=== PATIENT | male | born 1945 | race Caucasian/White ===

== ENCOUNTER 2024-09-10 08:19 | Observation (INO) ==
--- NOTE | 2024-09-10 08:50 | Emergency Department Note ---
Impression & Plan Facial cellulitis, Dental abscess ED Provider Note CHIEF COMPLAINT: Right-sided jaw pain and facial swelling x 1 day HISTORY OF PRESENT ILLNESS: Patient is an 79-year-old male with past medical history significant for hypertension, myasthenia gravis, allergies, among other chronic medical problems who presents to the emergency department for evaluation of right-sided facial swelling. Patient reports he developed right upper jaw pain and facial swelling yesterday afternoon. He has a dental implant on the right upper jawline that broke several months ago. He feels like he sometimes will get food particles stuck in the area. He notes pain along the jawline near the broken implant, and facial swelling that started yesterday. Pain was throbbing in nature and did keep him from sleeping last night, but is now better, and he rates it a 2/10. He did not take any medications, nor applied any compresses or perform any interventions for his symptoms. He denies fever, chills, nausea, vomiting or malaise. No blood or pus or foul tasting fluid in his mouth. He denies any recent antibiotics. He is from [place] and is in town for [place] for the weekend. REVIEW OF SYSTEMS: Review of systems as per HPI. All other systems reviewed were negative. 10 systems reviewed.. PMH: External medical records are reviewed and summarized as above/below. See Problem List. SOCIAL HISTORY: Patient lives at home in [facility]. Retired. PHYSICAL EXAM: Vital Signs: Reviewed Nurse's notes. CONSTITUTIONAL: Patient is a well-appearing 79-year-old male who is awake and alert and in no acute distress. Vital signs are stable. EARS: Tympanic membranes intact, not inflamed, have normal contour. External canals clear. MOUTH: Overall the patient has fair dentition. There is a fractured right upper dental implant that in the region of the first molar. There is mild swelling of the gumline, but no focal abscess. The area is tender to percussion. Mucous membranes moist, no lesions, tongue and gums appear normal. THROAT: No pharyngeal injection, exudates, or tonsillar hypertrophy. Airway is patent. No trismus noted. FACE: Swelling of the right upper face/cheek, without increased warmth or cellulitic changes. NECK: No lymphadenopathy. HEART: Regular rate and rhythm. LUNGS: Clear to auscultation. ED COURSE: The patient was seen and assessed as above. External medical records are reviewed. Patient presents to the emergency department for evaluation of facial swelling and right upper jaw pain. Symptoms do appear to be related to the broken dental implant. Fortunately no evidence for drainable abscess, or Harish's angina. IV lock was initiated. Laboratory studies were collected including CBC and BMP. He was given Unasyn [address] scan of the abdomen and pelvis with IV contrast was ordered. Diagnostics, as interpreted by me: Laboratory studies: Moderately elevated white count at 13,200 with left shift. H&H 13.3 and 38.7. No electrolyte imbalance or LIZETH. Imaging studies: Maxillofacial CT scan with IV contrast are concerning for dental caries and apical abscesses involving the right first maxillary premolar and adjacent second premolar. There is a small 1 x 0.5 cm abscess over the right maxilla and is extensive right facial inflammation consistent with cellulitis. Case reviewed with attending physician, Dr. Clark, who agrees with ED workup. All laboratory and diagnostic imaging studies reviewed with the patient. I did discuss treatment options with the patient. Options included escalation of care to admission/observation for IV antibiotics, versus a trial of oral antibiotics as an outpatient. Given rapid development of the facial cellulitis, as well as his immunocompromise state, I did recommend inpatient care. [place], does not have any doctors or providers locally, and is at high risk for complication. I did consult with Dr. Oneal with [facility], unfortunately, he was tied up in the operating room and was not able to weigh in on consult at this time. I did discuss admission/observation with Dr. Pope with the [facility] hospitalist service and he will admit the patient. Chronic conditions affecting care: Hypertension, myasthenia gravis, immunocompromise state Differential diagnosis:, Facial cellulitis, dental abscess, facial abscess, Harish's angina, sepsis, among others. Past Med/Surg History Problem List (Updated 09/10/24 @ 12:06 by Keith Pope MD) Dental abscess Facial cellulitis Medical History Myasthenia gravis BPH (benign prostatic hyperplasia) Environmental and seasonal allergies Hypertension Social History Smoking Status: Never smoker Second Hand Exposure: No; Do You Dip or Chew Tobacco: No; Tobacco Cessation Education Requested by Patient: No Hx Alcohol Use: No Hx Substance Use: No Preferred Language: Pashto Communication Ability: Effective Event Decorator Required: No Beliefs That Will Affect Care: None Current Living Situation: Alone Other Information That Helps Us Care for You: No Feels Safe at Home: Yes Safety Concerns: Feels Safe At This Time Assistive Devices: Glasses Allergies Allergies Allergy/AdvReac Type Severity Reaction Status Date / Time No Known Allergies Allergy Verified 09/10/24 11:15 Home Meds Home Medications Medication Instructions Recorded Confirmed amlodipine 10 mg-benazepril 40 mg 1 cap PO DAILY 09/10/24 09/10/24 capsule calcium 500 mg (as 1 tab PO BIDWMEAL 09/10/24 09/10/24 carbonate)-vitamin D3 5 mcg (200 unit) tablet (Oyster Shell Calcium-Vitamin D3) metoprolol succinate 100 mg 100 mg PO HS 09/10/24 09/10/24 tablet,extended release 24 hr mycophenolate mofetil 500 mg tablet 1,000 mg PO BID 09/10/24 09/10/24 prednisone 20 mg tablet 20 mg PO DAILY 09/10/24 09/10/24 pyridostigmine bromide 60 mg tablet 60 mg PO TID 09/10/24 09/10/24 simvastatin 20 mg tablet 20 mg PO HS 09/10/24 09/10/24 tamsulosin 0.4 mg capsule 0.4 mg PO HS 09/10/24 09/10/24 Results & Data (ED) Vital Signs Vital Signs - 24 hr 09/10/24 08:25 09/10/24 10:21 Temperature 36.7 C Temperature Source Temporal Artery Scan Pulse Rate 66 Pulse Rate [Finger] 54 L Respiratory Rate 20 18 Respiratory Effort / Characteristics Non-Labored Spontaneous Respiratory Depth Normal Blood Pressure 146/80 H Blood Pressure [Right Arm] 118/63 Blood Pressure Mean 102 Blood Pressure Mean [Right Arm] 81 Blood Pressure Position [Right Arm] Sitting Pulse Oximetry 96 96 Oxygen Delivery Method Room Air Room Air Sepsis Recent Fever Within 48 Hours No Sepsis New/Unexplained Change in Mental Status N/A Sepsis Action Taken by Nursing No Action Required Home Medications Current Medication List: was personally reviewed by me Laboratory Data Attestation: I reviewed the patient's lab results. 09/10/24 09:00 09/10/24 09:00 Lab Results 09/10/24 Range/Units 09:00 WBC 13.24 H (4.8-10.8) K/ul RBC 4.59 L (4.70-6.10) M/uL Hgb 13.3 L (14.0-18.0) g/dl Hct 38.7 L (42.0-52.0) % MCV 84.3 (80.0-100.0) fL MCH 29.0 (25.0-34.0) pg MCHC 34.4 (32.0-36.0) g/dL RDW Std Deviation 43.7 (36.4-46.3) fL RDW Coeff of Chel 14.2 (11.5-14.5) % Plt Count 219 (130-400) K/uL MPV 11.1 (9.4-12.4) fL Immature Gran % (Auto) 0.4 % Neut % (Auto) 84.5 % Lymph % (Auto) 6.0 % [place] % (Auto) 8.6 % Eos % (Auto) 0.4 % Baso % (Auto) 0.1 % Neut # (Auto) 11.19 H (1.40-6.50) K/uL Lymph # (Auto) 0.80 L (1.20-3.40) K/uL [place] # (Auto) 1.14 H (0.11-0.59) K/uL Eos # (Auto) 0.05 (0.00-0.50) K/uL Baso # (Auto) 0.01 (0.00-0.20) K/uL Immature Gran # (Auto) 0.05 (0.01-0.20) K/uL Sodium 135 L (136-145) mmol/L Potassium 4.0 (3.5-5.1) mmol/L Chloride 105 (98-107) mmol/L Carbon Dioxide 25 (21-32) mmol/L Anion Gap 5 (3-11) BUN 13 (6-23) mg/dl Creatinine 0.77 (0.6-1.4) mg/dl Est Cr Clr Drug Dosing 101.1 ml/min eGFR 90.50 BUN/Creatinine Ratio 16.9 (10-20) Glucose 115 H (70-99(Fasting)) mg/dl Calcium 8.8 (8.6-10.3) mg/dl Administered Medications Pyridostigmine Cable (Pyridostigmine Cable 60 Mg Tab) 60 mg PO TID JESÚS Stop: 10/10/24 13:59 Last Admin: 09/10/24 14:36 Dose: Not Given Documented By: HRB Discontinued Medications Ampicillin Sodium/Sulbactam Sodium (Unasyn) 3,000 mg in 100 mls @ 200 mls/hr IV NOW STA Stop: 09/10/24 09:15 Last Infusion: 09/10/24 09:35 Dose: Infused Documented By: Admin: 09/10/24 09:05 Dose: 200 mls/hr Documented By: CEF Ioversol (Optiray 320 100ml) 94 ml IV ONCE ONE Stop: 09/10/24 10:03 Last Admin: 09/10/24 10:03 Dose: 94 ml Documented By: ABS Imaging Data Attestation: I personally reviewed and interpreted this imaging study as follows: Radiologist's Impression: Face CT 09/10/24 08:[address] WITH CONTRAST CLINICAL HISTORY: RIGHT FACIAL PAIN AND SWELLING COMPARISON STUDY: No previous studies for comparison. TECHNIQUE: Thin cut axial images through the facial bones were obtained following intravenous injection of 94 cc of Optiray 320 IV. Sagittal and coronal reformats were viewed. A dose lowering technique was utilized adhering to the principles of ALARA. FINDINGS: Visualized portions of the intracranial contents are unremarkable on unenhanced exam. There is moderate polypoid mucosal thickening of the inferior maxillary sinuses as well as the right sphenoid sinus. There is mild ethmoid sinus mucosal thickening. Evaluation is compromised by streak artifact from multiple dental amalgams. There are dental caries and periapical abscesses involving the right first maxillary premolar and likely the second premolar as well. Extensive overlying inflammation is present. There is a small rim enhancing 1.3 x 0.4 cm fluid collection overlying the right maxilla consistent with an abscess. There is no soft tissue gas. Parotid and submandibular glands are normal. Epiglottis is normal. IMPRESSION: Dental caries and periapical abscesses involving the right first maxillary premolar and likely the adjacent second premolar. Associated small 1.3 x 0.4 cm abscess overlying the right maxilla and extensive associated right facial inflammation consistent with cellulitis. ACT 112: Negative or not required by law. Electronically signed by: Iban Castle M.D. 09/10/2024 10:37 AM Discharge Plan Visit Data Chief Complaint: Facial Injury/Pain Stated Complaint: RIGHT CHEEK SWELLING,PAIN ED Provider: Baldomero Clark ED Midlevel Provider: Aristides Armas Discharge Problem: Facial cellulitis, Dental abscess Patient Disposition: Admitted As Inpatient Condition: Fair Discharge Instructions Interventions: ED Discharge Assessment Last Done: 09/10/24 14:06
[2024-09-10] MEDS: AMPICILLIN/SULBACTAM SOD 3,000 MG/100 ML BAG IV STA (09:05)
[2024-09-10 09:13] LABS: Hematocrit (blood only) 38.7 % (42.0-52.0); Hemoglobin 13.3 g/dl (14.0-18.0); Immature Granulocytes # (auto) 0.05 K/uL (0.01-0.20); Immature Granulocytes % (auto) 0.4 %; Mean Corpuscular Hemoglobin 29.0 pg (25.0-34.0); Mean Corpuscular Volume 84.3 fL (80.0-100.0); Platelet Count 219 K/uL (130-400); RDW Standard Deviation 43.7 fL (36.4-46.3); Red Blood Count 4.59 M/uL (4.70-6.10); White Blood Count 13.24 K/ul (4.8-10.8)
[2024-09-10 09:32] LABS: Anion Gap 5.0 (3-11); Blood Urea Nitrogen 13.0 mg/dl (6-23); Calcium 8.8 mg/dl (8.6-10.3); Carbon Dioxide 25.0 mmol/L (21-32); Chloride 105.0 mmol/L (98-107); Creatinine Clr Calc Pharmacy 101.1 ml/min; Glucose 115.0 mg/dl (70-99(Fasting)); Potassium 4.0 mmol/L (3.5-5.1); Sodium 135.0 mmol/L (136-145)
--- NOTE | 2024-09-10 09:48 | Emergency Department Note ---
ED Visit Note I was consulted in regards to the patient's presentation and plan of care by the Advanced Practice Provider. I engaged in a detailed/meaningful discussion with the Advanced Practice Provider in regards to this patient's workup and plan of care. I performed a substantiative portion of the medical decision making following discussion with the Advanced Practice Provider. Please see the Advanced Practice Provider's separate documentation for full details of the patient's visit. I agree with the assessment and plan of Nyasia Armas PA-C. Baldomero Clark, DO Emergency Medicine .
[2024-09-10] MEDS: OPTIRAY 320 100ml IV ONE (10:03)
--- NOTE | 2024-09-10 10:38 | CT Scan Report ---
FACIAL BONE CT WITH CONTRAST CLINICAL HISTORY: RIGHT FACIAL PAIN AND SWELLING COMPARISON STUDY: No previous studies for comparison. TECHNIQUE: Thin cut axial images through the facial bones were obtained following intravenous injecti on of 94 cc of Optiray 320 IV. Sagittal and coronal reformats were viewed. A dose lowering technique was utilized adhering to the principles of ALARA. FINDINGS: Visualized portions of the intracranial contents are unremarkable on unenhanced exam. There is moderate polypoid mucosal thickening of the inferior maxillary sinuses as well as the right sphen oid sinus. There is mild ethmoid sinus mucosal thickening. Evaluation is compromised by streak artifa ct from multiple dental amalgams. There are dental caries and periapical abscesses involving the righ t first maxillary premolar and likely the second premolar as well. Extensive overlying inflammation i s present. There is a small rim enhancing 1.3 x 0.4 cm fluid collection overlying the right maxilla c onsistent with an abscess. There is no soft tissue gas. Parotid and submandibular glands are normal. Epiglottis is normal. IMPRESSION: Dental caries and periapical abscesses involving the right first maxillary premolar and likely the adjacent second premolar. Associated small 1.3 x 0.4 cm abscess overlying the right maxill a and extensive associated right facial inflammation consistent with cellulitis. ACT 112: Negative or not required by law. Electronically signed by: Iban Castle M.D. 09/10/2024 10:37 AM
--- NOTE | 2024-09-10 11:37 | History & Physical Report ---
Date of Service September 10, 2024 Assessment & Plan (1) Myasthenia gravis: (2) Facial cellulitis: (3) Dental abscess: (4) Hypertension: Plan 79 year old male with myasthenia gravis presents to the ER with right sided facial swelling and pain #Facial cellulitis / dental abscess / immunosuppressed state Given immunosuppression with mycophenolate and chronic prednisone use and proximity to eye recommend observation with intravenous antibiotics (Unasyn) Consult oromaxillofacial surgery, NPO after midnight in case of need for surgery If requiring surgery will need stress dose steroids perioperatively #Myasthenia gravis Given current infection will temporarily hold his mycophenolate Continue prednisone and pyridostigmine #Hypertension Continue amlodipine-benazepril and metoprolol succinate #Hyperlipidemia Continue simvastatin #BPH Continue tamsulosin VTE Prophylaxis - low risk, SCDs Disposition - observation to med/surg Admission and Anticipated Discharge Date Admission Date: September 10, 2024 History of Present Illness Chief Complaint: Right facial swelling Primary Care Provider: NO PCP Cristobal Nesbitt is an 79 year old male presents to the ER with right sided facial swelling and upper tooth pain that started yesterday afternoon. No fever or chills. Never had this previously. He has mysthenia gravis which is well cont rolled on his current regimen of prednisone, mycophenolate and pyridostigmine. No prior stroke or heart attacks. Allergies Allergy/AdvReac Type Severity Reaction Status Date / Time No Known Allergies Allergy Verified 09/10/24 11:15 Home Medications Medication Instructions Recorded Confirmed Type amlodipine 10 mg-benazepril 40 mg 1 cap PO DAILY 09/10/24 09/10/24 History capsule calcium 500 mg (as 1 tab PO BIDWMEAL 09/10/24 09/10/24 History carbonate)-vitamin D3 5 mcg (200 unit) tablet (Oyster Shell Calcium-Vitamin D3) metoprolol succinate 100 mg 100 mg PO HS 09/10/24 09/10/24 History tablet,extended release 24 hr mycophenolate mofetil 500 mg tablet 1,000 mg PO BID 09/10/24 09/10/24 History prednisone 20 mg tablet 20 mg PO DAILY 09/10/24 09/10/24 History pyridostigmine bromide 60 mg tablet 60 mg PO TID 09/10/24 09/10/24 History simvastatin 20 mg tablet 20 mg PO HS 09/10/24 09/10/24 History tamsulosin 0.4 mg capsule 0.4 mg PO HS 09/10/24 09/10/24 History Past Med/Surg History Problem List (Updated 09/10/24 @ 21:12 by Juan Oneal DMD) Acute dentin caries Dental abscess Facial cellulitis Medical History Myasthenia gravis BPH (benign prostatic hyperplasia) Environmental and seasonal allergies Hypertension Social History Smoking Status: Never smoker Second Hand Exposure: No; Do You Dip or Chew Tobacco: No; Tobacco Cessation Education Requested by Patient: No Hx Alcohol Use: No Hx Substance Use: No Preferred Language: Persian Communication Ability: Effective Animal Nursery Worker Required: No Beliefs That Will Affect Care: None Current Living Situation: Alone Other Information That Helps Us Care for You: No Feels Safe at Home: Yes Safety Concerns: Feels Safe At This Time Assistive Devices: Glasses Review of Systems Review of Systems: All systems reviewed & are unremarkable except as noted in HPI & below Physical Exam Constitutional: WD/WN, vitals as above Respiratory: normal respiratory effort, lungs clear to auscultation Cardiovascular: RRR, no murmur, no edema Gastrointestinal (Abdomen): normal bowel sounds, soft, nontender, no hepatosplenomegaly Skin: right sided facial swelling extending from lower eyelid to mandible centered over maxilla, tender to palpation without fluctuance Neurologic: moves all extremities and awake; not confused Results & Data Results & Data Vital Signs (Past 12 Hours) Vital Signs Temp Pulse Pulse Resp BP BP Pulse Ox 09/10/24 10:21 54 L 18 118/63 96 09/10/24 08:25 36.7 C 66 20 146/80 H 96 O2 Del Method 09/10/24 10:21 Room Air 09/10/24 08:25 Room Air Laboratory Results Abnormal lab results 09/10/24 Range/Units 09:00 WBC 13.24 H (4.8-10.8) K/ul RBC 4.59 L (4.70-6.10) M/uL Hgb 13.3 L (14.0-18.0) g/dl Hct 38.7 L (42.0-52.0) % Neut # (Auto) 11.19 H (1.40-6.50) K/uL Lymph # (Auto) 0.80 L (1.20-3.40) K/uL [place] # (Auto) 1.14 H (0.11-0.59) K/uL Sodium 135 L (136-145) mmol/L Glucose 115 H (70-99(Fasting)) mg/dl Diagnostic Findings FACIAL BONE CT WITH CONTRAST CLINICAL HISTORY: RIGHT FACIAL PAIN AND SWELLING COMPARISON STUDY: No previous studies for comparison. TECHNIQUE: Thin cut axial images through the facial bones were obtained following intravenous injection of 94 cc of Optiray 320 IV. Sagittal and coronal reformats were viewed. A dose lowering technique was utilized adhering to the principles of ALARA. FINDINGS: Visualized portions of the intracranial contents are unremarkable on unenhanced exam. There is moderate polypoid mucosal thickening of the inferior maxillary sinuses as well as the right sphenoid sinus. There is mild ethmoid sinus mucosal thickening. Evaluation is compromised by streak artifact from multiple dental amalgams. There are dental caries and periapical abscesses involving the right first maxillary premolar and likely the second premolar as well. Extensive overlying inflammation is present. There is a small rim enhancing 1.3 x 0.4 cm fluid collection overlying the right maxilla consistent with an abscess. There is no soft tissue gas. Parotid and submandibular glands are normal. Epiglottis is normal. IMPRESSION: Dental caries and periapical abscesses involving the right first maxillary premolar and likely the adjacent second premolar. Associated small 1.3 x 0.4 cm abscess overlying the right maxilla and extensive associated right facial inflammation consistent with cellulitis. Medications Administered ER Medications Given: Unasyn 3000mg IV Code Status & VTE Plan Code Status Full VTE Prophylaxis Plan VTE Prophylaxis will be ordered: No PG Care Time/CCT Total # of Minutes Spent Total Time Spent with Patient: Total time spent is greater than 50% in coordination of care (as documented) at patient's floor/unit and/or counseling patient: Coding Level of Care Code 24577 INT INP/OBS CARE 3/75MIN Diagnoses Myasthenia gravis G70.00 Facial cellulitis L03.211 Dental abscess K04.7 Hypertension I10
[2024-09-10] MEDS ORDERED: ACETAMINOPHEN 325 MG TAB PO PRN (11:49)
[2024-09-10] MEDS ORDERED: KETOROLAC TROMETHAMINE 15 MG/ML VIAL IV PRN (11:49)
[2024-09-10] MEDS ORDERED: ONDANSETRON INJ 2 MG/ML 2 ML VIAL IV PRN (11:49)
[2024-09-10] MEDS: AMPICILLIN/SULBACTAM SOD 3,000 MG/100 ML BAG IV SCH (16:23)
[2024-09-10] MEDS: SIMVASTATIN 20 MG TAB PO SCH (20:26)
[2024-09-10] MEDS: TAMSULOSIN HCL 0.4 MG CAP PO SCH (20:26)
[2024-09-10] MEDS: METOPROLOL SUCC 50MG EXT REL TAB PO SCH (20:29)
[2024-09-10] MEDS ORDERED: MYCOPHENOLATE MOFETIL 250 MG CAP PO SCH (21:00)
--- NOTE | 2024-09-10 21:11 | Oral/Maxillofacial Consult ---
Date of Consultation September 10, 2024 Assessment & Plan (1) Dental abscess: (2) Facial cellulitis: (3) Acute dentin caries: History of Present Illness Attending Physician: Keith Pope MD History of Present Illness D721- x 2 tooth # 4 and 5 K12.1 CPT 59600 The patient presents with oral infection upper right cheek, infraorbital and mucobuccal fold The areas involved are very swollen, fluctuant and associated with abscess # 4 and 5 The adjacent gingival tissue is involved with gingival recession and associated muco-gingival issues. There are other carious teeth and fractured implants upper left Teeth stained and erosion as expected. The following will require an intraoral I&D--upper right mucobuccal fold and infraorbital space abscess Suggested treatment Acute facial abscess upper right from abscessed # 4 and 5. These teeth are grossly fractured and carious. Will need I&D and extraction of # 4 and 5 NPO tonight For OR tomorrow afternoon Surgery will be done at the [facility] Main OR under [place] All risks reviewed, questioned answered. Risks discussed: Bleeding,Pain,swelling,infection, dry socket, delayed healing, nerve injury to face,lips,tongue,chin area which could be permanent (rare). TMJ, jaw stiffness, change in bite (rare), ear pain (referred). Sinus problems like fistula or infection. Need to leave a small root fragment in place to avoid injury to sinus. Relationship of teeth to sinus Need to see dentist once back in [facility] We will set up surgery Saturday, NPO Consents will be signed and H&P completed before the procedure. Allergies Allergy/AdvReac Type Severity Reaction Status Date / Time No Known Allergies Allergy Verified 09/10/24 11:15 Home Medications Medication Instructions Recorded Confirmed Type amlodipine 10 mg-benazepril 40 mg 1 cap PO DAILY 09/10/24 09/10/24 History capsule calcium 500 mg (as 1 tab PO BIDWMEAL 09/10/24 09/10/24 History carbonate)-vitamin D3 5 mcg (200 unit) tablet (Oyster Shell Calcium-Vitamin D3) metoprolol succinate 100 mg 100 mg PO HS 09/10/24 09/10/24 History tablet,extended release 24 hr mycophenolate mofetil 500 mg tablet 1,000 mg PO BID 09/10/24 09/10/24 History prednisone 20 mg tablet 20 mg PO DAILY 09/10/24 09/10/24 History pyridostigmine bromide 60 mg tablet 60 mg PO TID 09/10/24 09/10/24 History simvastatin 20 mg tablet 20 mg PO HS 09/10/24 09/10/24 History tamsulosin 0.4 mg capsule 0.4 mg PO HS 09/10/24 09/10/24 History Patient History Medical History Myasthenia gravis BPH (benign prostatic hyperplasia) Environmental and seasonal allergies Hypertension Social History Smoking Status: Never smoker Second Hand Exposure: No; Do You Dip or Chew Tobacco: No; Tobacco Cessation Education Requested by Patient: No Hx Alcohol Use: No Hx Substance Use: No Preferred Language: Sami Communication Ability: Effective Roof Truss Machine Tender Required: No Beliefs That Will Affect Care: None Current Living Situation: Alone Other Information That Helps Us Care for You: No Feels Safe at Home: Yes Safety Concerns: Feels Safe At This Time Assistive Devices: Glasses Results & Data Vital Signs (Past 12 Hours) Vital Signs Temp Pulse Pulse Resp BP Pulse Ox O2 Del Method 09/10/24 14:20 36.9 C 62 20 164/76 H 98 Room Air 09/10/24 12:11 57 L 19 137/50 L 09/10/24 12:03 49 L 09/10/24 11:51 50 L 16 137/50 L 97 Room Air 09/10/24 10:21 54 L 18 118/63 96 Room Air PG Care Time/CCT Total # of Minutes Spent Total Time Spent with Patient: Total time spent is greater than 50% in coordination of care (as documented) at patient's floor/unit and/or counseling patient: Coding Level of Care Code 18560 INT INP/OBS CARE 140MIN Diagnoses Dental abscess K04.7 Facial cellulitis L03.211 Acute dentin caries K02.9
[2024-09-10] MEDS: CHLORHEXIDINE GLUCONATE 0.12% 480 ML MT SCH (22:04)
[2024-09-11] MEDS: SODIUM CHLORIDE 0.9% 1,000 ML IV SCH (07:59)
[2024-09-11] MEDS: ENALAPRIL MALEATE 10 MG TAB PO SCH (08:02)
[2024-09-11 08:06] LABS: Hematocrit (blood only) 35.9 % (42.0-52.0); Hemoglobin 12.2 g/dl (14.0-18.0); Immature Granulocytes # (auto) 0.06 K/uL (0.01-0.20); Immature Granulocytes % (auto) 0.5 %; Mean Corpuscular Hemoglobin 28.8 pg (25.0-34.0); Mean Corpuscular Volume 84.7 fL (80.0-100.0); Platelet Count 192 K/uL (130-400); RDW Standard Deviation 44.2 fL (36.4-46.3); Red Blood Count 4.24 M/uL (4.70-6.10); White Blood Count 11.38 K/ul (4.8-10.8)
[2024-09-11 08:25] LABS: Anion Gap 6.0 (3-11); Blood Urea Nitrogen 11.0 mg/dl (6-23); Calcium 8.3 mg/dl (8.6-10.3); Carbon Dioxide 24.0 mmol/L (21-32); Chloride 106.0 mmol/L (98-107); Creatinine Clr Calc Pharmacy 105.2 ml/min; Glucose 98.0 mg/dl (70-99(Fasting)); Potassium 3.8 mmol/L (3.5-5.1); Sodium 136.0 mmol/L (136-145)
[2024-09-11] MEDS: HYDROCORTISONE SOD 50 MG in SYRINGE 0 ML IV SCH (08:32)
--- NOTE | 2024-09-11 08:46 | Electrocardiogram Report ---
Test Reason : Blood Pressure : */* mmHG Vent. Rate : 53 BPM Atrial Rate : 53 BPM P-R Int : 228 ms QRS Dur : 106 ms QT Int : 454 ms P-R-T Axes : 44 -4 40 degrees QTcB Int : 426 ms Sinus bradycardia with 1st degree A-V block Otherwise normal ECG No previous ECGs available Confirmed by Corey Bai ([id number]) on 09/11/2024 8:45:57 AM Referred By: REFERRED SELF Confirmed By: Corey Bai
[2024-09-11] MEDS ORDERED: predniSONE 20 MG TAB PO SCH (09:00)
--- NOTE | 2024-09-11 11:54 | Hospitalist Progress Note ---
Date of Service September 11, 2024 Assessment & Plan (1) Myasthenia gravis: (2) Facial cellulitis: (3) Dental abscess: (4) Hypertension: Plan 79 year old male with myasthenia gravis presents to the ER with right sided facial swelling and pain #Facial cellulitis / dental abscess / immunosuppressed state Given immunosuppression with mycophenolate and chronic prednisone use and proximity to eye recommend observation with intravenous antibiotics (Unasyn) Consulted oromaxillofacial surgery, was made NPO after MN For OR today with Dr. Oneal today for I&D Will stress dose him following procedure d/t chronic steroid use #Myasthenia gravis Given current infection will temporarily hold his mycophenolate Continue prednisone and pyridostigmine #Hypertension Continue amlodipine-benazepril and metoprolol succinate #Hyperlipidemia Continue simvastatin #BPH Continue tamsulosin VTE Prophylaxis - low risk, SCDs Disposition - observation to med/surg AM labs ordered Admission and Anticipated Discharge Date Admission Date: September 10, 2024 Supervising Physician Co-Signing Physician Notes The patient was not seen by me. The chart was reviewed. Case discussed with AYSHA Gan. Agree with assessment and plan Subjective Cristobal is a pleasant 79 yo M who was seen on rounds this morning. He was admitted with dental abscess and is for I&D with Dr. Oneal today. He reports symptoms including pain and swelling have improved. Denies cp or dyspnea. Review of Systems 2 Review of Systems: All systems reviewed and are unremarkable except as noted in HPI and below. Denies fever, chills, fatigue, headache, nasal congestion, sore throat, cough, chest pain, shortness of breath, palpitations, orthopnea, PND, abdominal pain, n/v/d, constipation, dysuria, hematuria, frequency, back pain, joint pain or swelling, easy bruising or bleeding, skin lesions or rashes. Physical Exam 2 Physical Exam: GENERAL: 79 yo elderly WM. A&Ox3. No distress. ENT: Right sided facial swelling. Dental cares noted. Mucus membranes moist. LUNGS: Clear to auscultation bilaterally. No accessory muscle use. No W/R/R. CARDIOVASCULAR: Regular rate and rhythm. No M/G/R. No JVD. Results & Data Results & Data Vital Signs (Past 12 Hours) Vital Signs Temp Pulse Resp BP Pulse Ox O2 Del Method 09/11/24 07:32 36.6 C 49 L 18 159/66 H 93 Room Air Laboratory Results 09/11/24 07:22 09/11/24 07:22 PG Care Time/CCT Total # of Minutes Spent Total Time Spent with Patient: Total time spent is greater than 50% in coordination of care (as documented) at patient's floor/unit and/or counseling patient: 36 minutes Coding Level of Care Code 15281 SUB INP/OBS CARE 2/35MIN Diagnoses Myasthenia gravis G70.00 Facial cellulitis L03.211 Dental abscess K04.7 Hypertension I10
[2024-09-11] MEDS ORDERED: LIDOCAINE 2% 2 ML VIAL/AMP(20MG/ML) INFIL ONE (13:13)
[2024-09-11] MEDS ORDERED: ONDANSETRON INJ 2 MG/ML 2 ML VIAL ONE (13:13)
[2024-09-11] MEDS ORDERED: DEXAMETHASONE SOD INJ 4 MG/ML VIAL ONE (13:13)
[2024-09-11] MEDS ORDERED: PROPOFOL IV EMULSION 10 MG/ML 20 ML VIAL IV ONE ×2 (13:13→14:15)
[2024-09-11] MEDS ORDERED: ONDANSETRON INJ 2 MG/ML 2 ML VIAL IV PRN (13:15)
[2024-09-11] MEDS ORDERED: NALOXONE HCL 0.4 MG/1 ML VIAL/CARP IV PRN (13:15)
[2024-09-11] MEDS ORDERED: PROMETHAZINE HCL 6.25 MG in SODIUM CHLORIDE 0.9% 50 ML IV PRN (13:15)
[2024-09-11] MEDS ORDERED: ATROPINE SULFATE 0.1 MG/ML 10ML SYR IV PRN (13:15)
[2024-09-11] MEDS ORDERED: FLUMAZENIL 0.1 MG/1 ML 10 ML VIAL IV PRN (13:15)
--- NOTE | 2024-09-11 13:15 | Anesthesiology Consultation ---
Date of Service September 11, 2024 Assessment & Plan Chart Review Chart Review: Acceptable Risk for Surgery and Patient NOT seen in Pre Admission Testing Consults Requested none ASA ASA3 Proposed Anesthesia Anesthesia Type: General Risk / Benefits Reviewed With: PT / POA / Parent / Guardian, Accepts Plan and Informed Consent Obtained History Surgery Operation Date: 09/11/24 07:00 Proposed Procedures p Incision and Drainage Right Abscess Teeth #4 and #5 - Juan Oneal, JAYSON Height/Weight Height: 6 ft 2 in Weight: 110.3 kg Allergies Allergy/AdvReac Type Severity Reaction Status Date / Time No Known Allergies Allergy Verified 09/10/24 11:15 Medications Home Medications Medication Instructions Recorded Confirmed Last Taken amlodipine 10 mg-benazepril 40 mg 1 cap PO DAILY 09/10/24 09/10/24 Unknown capsule calcium 500 mg (as 1 tab PO BIDWMEAL 09/10/24 09/10/24 Unknown carbonate)-vitamin D3 5 mcg (200 unit) tablet (Oyster Shell Calcium-Vitamin D3) metoprolol succinate 100 mg 100 mg PO HS 09/10/24 09/10/24 Unknown tablet,extended release 24 hr mycophenolate mofetil 500 mg tablet 1,000 mg PO BID 09/10/24 09/10/24 Unknown prednisone 20 mg tablet 20 mg PO DAILY 09/10/24 09/10/24 Unknown pyridostigmine bromide 60 mg tablet 60 mg PO TID 09/10/24 09/10/24 Unknown simvastatin 20 mg tablet 20 mg PO HS 09/10/24 09/10/24 Unknown tamsulosin 0.4 mg capsule 0.4 mg PO HS 09/10/24 09/10/24 Unknown Active Medications Generic Name Dose Route Start Last Admin Trade Name Yari PRN Reason Stop Dose Admin Amlodipine Besylate 10 mg 09/11/24 09:00 09/11/24 08:01 Amlodipine Besylate 5 Mg Tab PO 10/11/24 08:59 10 mg DAILY JESÚS Administration Enalapril Maleate 20 mg 09/11/24 09:00 09/11/24 08:02 Enalapril Maleate 10 Mg Tab PO 10/11/24 08:59 20 mg DAILY JESÚS Administration Ampicillin Sodium/Sulbactam Sodium 3,000 mg in 100 mls @ 200 mls/hr 09/10/24 15:00 09/11/24 08:32 Unasyn IV 09/20/24 14:59 Infused Q6H JESÚS Infusion Hydrocortisone Sodium 1 mls @ 4 mls/min 09/11/24 08:00 09/11/24 08:32 Succinate 50 mg/ Syringe IV 10/11/24 07:59 4 mls/min Q8H JESÚS Administration Sodium Chloride 1,000 mls @ 80 mls/hr 09/11/24 07:45 09/11/24 07:59 Nss IV 09/14/24 07:44 80 mls/hr .[id number] JESÚS Administration Metoprolol Succinate 100 mg 09/10/24 21:00 09/10/24 20:29 Metoprolol Succ 50mg Ext Rel Tab PO 10/10/24 20:59 100 mg HS JESÚS Administration Pyridostigmine [place] 60 mg 09/10/24 14:00 09/11/24 08:02 Pyridostigmine [place] 60 Mg Tab PO 10/10/24 13:59 60 mg TID JESÚS Administration Simvastatin 20 mg 09/10/24 21:00 09/10/24 20:26 Simvastatin 20 Mg Tab PO 10/10/24 20:59 20 mg HS JESÚS Administration Tamsulosin HCl 0.4 mg 09/10/24 21:00 09/10/24 20:26 Tamsulosin Hcl 0.4 Mg Cap PO 10/10/24 20:59 0.4 mg HS JESÚS Administration NPO Date Last Intake of Fluids: 09/10/24 Time Last Intake of Fluids: 20:00 Date Last Intake of Solids: 09/10/24 Time Last Intake of Solids: 17:00 Past Medical History Medical History Myasthenia gravis BPH (benign prostatic hyperplasia) Environmental and seasonal allergies Hypertension Exercise / Class Metabolic Activity III < 4 Walking/Shop/Light housework Past Anesthesia History No Hx of Anesthesia Complications and No Family Hx of Anesthesia Complications History of PONV No Hx of PONV and No Hx of Motion Sickness Social History Smoking Status: Never smoker Do You Dip or Chew Tobacco: No Hx Alcohol Use: No Hx Substance Use: No substance use type: does not use Physical Exam Vital Signs Last Vital Signs Temp 36.8 C 09/11/24 12:55 Pulse 60 09/11/24 12:55 Resp 18 09/11/24 12:55 BP 156/76 H 09/11/24 12:55 Pulse Ox 98 09/11/24 12:55 O2 Del Method Room Air 09/11/24 12:55 Constitutional + obese; no acute distress ENMT Mouth: + dentition abnormality and + poor dentition Thyromental Distance: > or= 3.5 Finger Breadths Mallampati Class: II Neck normal visual inspection and trachea midline; neck extension not limited Respiratory normal respiratory effort Auscultation: lungs clear to auscultation bilaterally and + diminished lung sounds Cardiovascular Rate/Rhythm: regular rate and regular rhythm Heart Sounds: no murmur Vessels: no carotid bruit Musculoskeletal Spine: normal cervical ROM Extremities: extremities normal to inspection Neurologic moves all extremities Motor/Sensory: no sensory deficit Psychiatric Orientation: alert and oriented x 3 Testing Laboratory Results 09/11/24 07:22 09/11/24 07:22 09/11/24 11:36 POC Glucose 104 H Electrocardiogram Date: 09/11/24 Findings: + SB @ (@ 53 1st degree AVB)
--- NOTE | 2024-09-11 13:18 | History & Physical Bridge Note ---
Date of Service September 11, 2024 History & Physical Bridge Note I have examined the patient, reviewed the History & Physical and in the interval since the performance of the History & Physical I have noted the following changes of clinical significance: no changes noted. OK for surgery
[2024-09-11] MEDS ORDERED: ROCURONIUM BROMIDE 10 MG/ML 5 ML VIAL IV ONE (13:20)
[2024-09-11] MEDS ORDERED: ACETAMINOPHEN 1000 MG/100 ML IV IV ONE (13:39)
[2024-09-11] MEDS ORDERED: HYDROmorphone INJ 2 MG/ML SYR/VIAL ONE (13:58)
[2024-09-11] MEDS: BUPIVACAINE/EPINEPHRINE 0.5% 1:200,000 1.8 ML CARP ONE (14:00)
[2024-09-11] MEDS: SURGICEL ABSORB HEMOSTAT 2IN X 14IN TOP ONE (14:04)
[2024-09-11] MEDS ORDERED: GLYCOPYRROLATE 0.2 MG/ML VIAL ONE (14:09)
[2024-09-11] MEDS ORDERED: SUGAMMADEX SODIUM 200 MG/2 ML VIAL IV ONE (14:20)
--- NOTE | 2024-09-11 14:37 | Post Operative Brief Note ---
PG Immediate Post Op with CF Date of Surgery September 11, 2024 Pre & Post Diagnosis Operation Date: 09/11/24 07:00 Pre-Op Diagnosis: 1. Dental abscess, 2. Facial cellulitis, 3. Acute dentin caries Post-Op Diagnosis: 1. Dental abscess, 2. Facial cellulitis, 3. Acute dentin caries I identified the patient and participated in the time-out.: Yes Procedure Operation Date: 09/11/24 07:00 Actual Procedures p Incision and Drainage Abscess Teeth #4 and #5, Extraction Teeth #4 and #5. (Not Applicable) - Juan Oneal DMD Surgeon Juan Oneal, JAYSON Civil Engineering Drafter none Estimated Blood Loss 3 Findings Consistent with Post-Op Diagnosis gross infection and infected teeth Specimens Specimen Description: no specimen per surgeon Anesthesia Type General Complications none Disposition Accompanied Patient To Recovery: Yes
--- NOTE | 2024-09-11 15:10 | Anesthesiology Progress Note ---
Date of Service September 11, 2024 Anesthesia Post Procedure Vital Signs Vital Signs: Temp Pulse Pulse Resp BP Pulse Ox O2 Del Method 09/11/24 15:04 36.4 C L 59 L 12 168/75 H 95 Nasal Cannula 09/11/24 14:55 71 16 163/84 H 95 Oxymask 09/11/24 14:45 74 20 163/84 H 94 Oxymask 09/11/24 14:35 36.0 C L 74 13 162/70 H 96 Oxymask 09/11/24 12:55 36.8 C 60 18 156/76 H 98 Room Air 09/11/24 07:32 36.6 C 49 L 18 159/66 H 93 Room Air 09/10/24 20:25 Room Air 09/10/24 20:25 36.8 C 76 20 156/79 H 96 Room Air O2 Flow Rate 09/11/24 15:04 2 09/11/24 14:55 2 09/11/24 14:45 4 09/11/24 14:35 4 09/11/24 12:55 09/11/24 07:32 09/10/24 20:25 09/10/24 20:25 Pain Intensity Right Face: Pain Intensity: 2 Transfer of Care Handoff Completed per policy Notes Mental Status: alert / awake / arousable Patient Amnestic to Procedure: Yes Nausea / Vomiting: adequately controlled Pain: adequately controlled Airway Patency, RR, SpO2: stable & adequate BP & HR: stable & adequate Hydration State: stable & adequate Anesthetic Complications: no major complications apparent
[2024-09-12 03:17] VITALS: RESP 16
[2024-09-12 07:02] LABS: Hematocrit (blood only) 36.8 % (42.0-52.0); Hemoglobin 12.2 g/dl (14.0-18.0); Mean Corpuscular Hemoglobin 28.1 pg (25.0-34.0); Mean Corpuscular Volume 84.8 fL (80.0-100.0); Platelet Count 219 K/uL (130-400); RDW Standard Deviation 43.5 fL (36.4-46.3); Red Blood Count 4.34 M/uL (4.70-6.10); White Blood Count 13.32 K/ul (4.8-10.8)
[2024-09-12 07:21] LABS: Anion Gap 7.0 (3-11); Blood Urea Nitrogen 14.0 mg/dl (6-23); Calcium 8.3 mg/dl (8.6-10.3); Carbon Dioxide 23.0 mmol/L (21-32); Chloride 108.0 mmol/L (98-107); Creatinine Clr Calc Pharmacy 116.2 ml/min; Glucose 112.0 mg/dl (70-99(Fasting)); Potassium 4.1 mmol/L (3.5-5.1); Sodium 138.0 mmol/L (136-145)
[2024-09-12 07:45] VITALS: BP 137/71; PULSE 75; TEMP 97.9; O2SAT 92
[2024-09-12 07:50] LABS: Immature Granulocytes # (auto) 0.07 K/uL (0.01-0.20); Immature Granulocytes % (auto) 0.5 %
[2024-09-12] MEDS: predniSONE 20 MG TAB PO SCH (08:54)
--- NOTE | 2024-09-12 09:26 | Operative Report ---
PG Post Operative Report Pre & Post Diagnosis Operation Date: 09/11/24 07:00 Pre-Op Diagnosis: 1. Dental abscess, 2. Facial cellulitis, 3. Acute dentin caries Post-Op Diagnosis: 1. Dental abscess, 2. Facial cellulitis, 3. Acute dentin caries I identified the patient and participated in the time-out.: Yes Procedure Operation Date: 09/11/24 07:00 Actual Procedures p Incision and Drainage Abscess Teeth #4 and #5, Extraction Teeth #4 and #5. (Not Applicable) - Juan Oneal DMD Surgeon Juan Oneal DMD Scoop Machine Operator none Estimated Blood Loss 3 Findings Consistent with Post-Op Diagnosis Specimens none Drains none Anesthesia Type General Complications none Disposition Accompanied Patient To Recovery: Yes Indications acute facial abscess upper right Description of Procedure p Incision and Drainage left maxillary vestibule and infraorbital space Abscess; - Juan Oneal DMD ICD 10 K12.2 , L03.211 CPT 12524 I & D of deep subcutaneous abscess of the inferior orbital and vestibular space of right maxilla Once cleared for surgery general anesthesia was achieved, the eyes were protected by the anesthesia dept criteria. A time out was take for patient ID, antibiotics, equipment and position verification once all agreed the procedure began. Local anesthesia using Marcaine with a vasoconstrictor ( 1.8 ml per site) given into right posterior maxilla A throat pack was placed after the oral cavity was irrigated with saline. Once a surgical level of anesthesia was obtained and the local anesthesia was given time for the blocks the surgery was started. I turned my attention to the infection which was located in the in the right cheek, right vestibule, right tuberosity area, Infraorbital fossa area Incision and Drainage CPT 92833 Using a 15 blade an incision was made in the posterior aspect of the vestibular area right side. Once the incision was made a lot of pus extruded from the site. A curved hemostat was carefully placed superior into the infected space to drain the infraorbital space and vestibular space. I palpated the face and cheek area and no further drainage was expressed. The area was irrigated with at least 100 ml of NS solution. The infraorbital space was well drained and the swelling was decreased. Cristobal is from [facility] and be will be followed by a dentist if needed once back in [facility]. He has a lot of other dental issues that need attention. I now turned my attention to remove the # 4 and 5 fractured and infected teeth Fractured # 4 and 5 [id number] x 2 The full thick Muco-periosteal flap was made on the facial aspect from 7-2 area. The large flap was reflected to expose the the subperiosteal space and the bone adjacent to 4 and 5. These teeth were grossly fractured and a drill was needed to remove the bone, split the roots to allow removal of the 2 teeth. with a 301 elevator, there was a large amount of granulation tissue on the apex and some more pus that was expressed upon removal of the 2 teeth/roots. The site was irrigated and curetted. The soft tissue was very friable from the infection and bleed a lot. I placed Surgicel to help with clotting and sutured the flap closed with a 2-0 chromic. The mucobuccal incision site was left opened for drainage. I inspected the sites to insure all bleeding was controlled. I removed the throat pack and suctioned the throat and passed an OG tube. A gauze pressure dressings was placed. All instrument and sponge count was correct. The patient was allowed to awake from the anesthesia. Once full awake the anesthesia tube was removed and the patient was taken to the recovery room with all vital sign stable. The patient tolerated the surgery very well. Rx and instructions will be given upon discharge. If any follow up is needed he will be getting this in [facility] Suggested he establish himself for routine dental care to avoid another episode of infection The Plan is for discharge on September 12. Suggest oral antibiotics Augmentin for 7 days Pain Meds if needed. I attest to the content of the Intraoperative Record and any orders documented therein. Any exceptions are noted below.
--- NOTE | 2024-09-12 09:58 | Discharge Summary ---
Discharge Summary Date of Service September 12, 2024 Principal Dx & Hospital Course #1 = Principal Diagnosis (1) Myasthenia gravis: Parenteral hydrocortisone switch back to oral prednisone today, September 12. Continue pyridostigmine. Stable (2) Facial cellulitis: Treated while hospitalized with intravenous Unasyn. Continue Augmentin at discharge for 10 more days (3) Dental abscess: Appreciate OMFS consult. He underwent surgical intervention yesterday, September 11, with incision and drainage of the right maxillary abscess and extraction of teeth #4 and #5. He will continue with oral Augmentin at discharge and follow- up with his PCP and dentist in [facility] where he lives. (4) Hypertension: Stable. Continue usual home medications at discharge Plan Home todaySeptember 12 Admission HPI Per Admitting Provider Cristobal Nesbitt is an 79 year old male presents to the ER with right sided facial swelling and upper tooth pain that started yesterday afternoon. No fever or chills. Never had this previously. He has mysthenia gravis which is well control led on his current regimen of prednisone, mycophenolate and pyridostigmine. No prior stroke or heart attacks. Discharge Plan Discharge Items Patient Disposition: Home - Self-Care Reason For Visit: FACIAL CELLULITIS, IMMUNOCOMPROMISED STATE Discharge Diagnosis: s/p I&D facial cellulitics Condition on Discharge: Good Activity: Resume your previous activity Lifting: Gradually increase as tolerated Bathing: No limitations Exercise/Sports: As tolerated Driving/Machine Use: Resume 1 day after discharge Weightbearing: Full weightbearing Non-emergency contact: Surgeon Call non-emergency contact if: you have any medication questions, your temperature is above 101.5, your wound has increased redness, your wound has increased drainage and your wound pain has increased Follow-up/Referrals: Juan Oneal, JAYSON [Physician] - PCP,NO [Primary Care Provider] - Diet: Regular, Full liquid and Clear liquid Diet Texture: Easy to Chew Addtl Attending Provider Instructions: ADDITIONAL ACTIVITY RECOMMENDATIONS: * [place] teeth after every meal. It is very important to keep your mouth clean to prevent infection. * Starting tonight rinse with the Peridex as directed then 2 x a day * it is very important to keep well hydrated, this prevents fever and possible dry socket pain SPECIAL CARE INSTRUCTIONS: *It is not uncommon that between day 2-4 that your swelling will be at its worst this is very normal, do not be alarmed. * Keep ice on the side of your face for the next 24 to 36 hours. This will help keep the swelling down. * A certain amount of bleeding is to be expected. It is often possible to control mild oozing by placing folded gauze over the area and biting down for 30 minutes. If you are unable to control excessive bleeding, * You may experience some discomfort for a few days. If pain or swelling increases, Call Dr Oneal * Return to the office for a follow up check up on: follow up should not be need ed, if you need to see someone once you are back home I would suggest an Oral Surgeon. If anyone should need my operative report place call my office [phone] * office address--[address] phone # [phone] Pending Studies at Discharge: No Stand-Alone Forms: [facility], Smoking Cessation Medications and DC Order Prescriptions: New amoxicillin-pot clavulanate 875-125 mg tablet 1 tab PO BID Qty: 20 0RF Continued prednisone 20 mg tablet 20 mg PO DAILY metoprolol succinate 100 mg tablet extended release 24 hr 100 mg PO HS mycophenolate mofetil 500 mg tablet 1,000 mg PO BID tamsulosin 0.4 mg capsule 0.4 mg PO HS simvastatin 20 mg tablet 20 mg PO HS pyridostigmine bromide 60 mg tablet 60 mg PO TID calcium carbonate-vitamin D3 [Oyster Shell Calcium-Vit D3] 500 mg-5 mcg (200 unit) tablet 1 tab PO BIDWMEAL amlodipine-benazepril 10-40 mg capsule 1 cap PO DAILY Discharge Orders: Discharge Order (Routine); Ordered 09/12/24 Ordered By: Jefferson Tierney Admission Data Admit Date/Time: 09/11/24 16:42 Attending Provider: Jefferson Tierney Admit Provider: Keith Pope Primary Care Provider: PCP,NO Other Providers: Keith Pope; Juan Oneal Hospital Stay Data Consultations 09/10/24 11:30 ED Decision to Admit Stat 09/10/24 11:49 Consult Oromaxillofacial Surgery Routine Procedures Performed Operation Date: 09/11/24 07:00 Actual Procedures p Incision and Drainage Abscess Teeth #4 and #5, Extraction Teeth #4 and #5. (Not Applicable) - Juan R Oneal, DMD Diagnostic Imagining Performed 09/10/24 08:46 CT facial bones w con Stat Pending Results Patient Have Any Pending Studies at Discharge: No Discharge Instructions Given to Patient (Per Discharging Provider) ADDITIONAL ACTIVITY RECOMMENDATIONS: * [place] teeth after every meal. It is very important to keep your mouth clean to prevent infection. * Starting tonight rinse with the Peridex as directed then 2 x a day * it is very important to keep well hydrated, this prevents fever and possible dry socket pain SPECIAL CARE INSTRUCTIONS: *It is not uncommon that between day 2-4 that your swelling will be at its worst this is very normal, do not be alarmed. * Keep ice on the side of your face for the next 24 to 36 hours. This will help keep the swelling down. * A certain amount of bleeding is to be expected. It is often possible to control mild oozing by placing folded gauze over the area and biting down for 30 minutes. If you are unable to control excessive bleeding, * You may experience some discomfort for a few days. If pain or swelling increases, Call Dr Oneal * Return to the office for a follow up check up on: follow up should not be needed, if you need to see someone once you are back home I would suggest an Oral Surgeon. If anyone should need my operative report place call my office [phone] * office address--[address] phone # [phone] Total Time Total Time Spent Total Time Spent (In Minutes): 45 minutes Coding Level of Care Code 14268 INP/OBS DISCH >30 MIN Diagnoses Myasthenia gravis G70.00 Facial cellulitis L03.211 Dental abscess K04.7 Hypertension I10
== END 2024-09-12 12:06 | disposition home or self-care (01) | DRG 57 ==
LOC: EDINP 08:19 → ED 08:19 → SUATTDRO 11:33 → 3E 14:06